=== PATIENT | male | born 1955 | race Two or more races ===

== ENCOUNTER → 2019-05-08 | Outpatient (CLI) | payer OTHER ==
[~2019-05-08] MED LIST: PERCOCET 5/3251 TAB PO; POLY119PG PO; ULTRAM50 MG PO
== END | disposition home or self-care (01) ==
LOC: RAD 11:33
DX: M25.561 Pain in right knee (principal)
CPT/HCPCS: 73718

== ENCOUNTER → 2019-10-09 12:05 | Outpatient (CLI) | payer OTHER | END | disposition home or self-care (01) | LOC: LAB 12:05 | DX: R97.20 Elevated prostate specific antigen [PSA] (principal) ==

== ENCOUNTER 2019-10-24 07:05 | Outpatient (CLI) | payer OTHER | END 2019-10-24 07:31 | disposition home or self-care (01) | LOC: SONOGRAMA 07:05 | DX: R97.20 Elevated prostate specific antigen [PSA] (principal) ==

== ENCOUNTER 2020-03-23 15:02 | Outpatient (CLI) | payer OTHER | END 2020-03-23 15:13 | disposition home or self-care (01) | LOC: RAD 15:02 | PROVIDERS: ATTEND Orthopaedic Surgery | DX: R07.89 Other chest pain (principal) ==

== ENCOUNTER 2020-05-29 09:21 | Emergency (ER) | payer OTHER ==
[~2020-05-29] VITALS: Ht 182.9 cm; Wt 100.2 kg
== END 2020-05-29 14:31 | disposition home or self-care (01) ==
LOC: ER 09:21
DX: K52.89 Other specified noninfective gastroenteritis and colitis (principal); Z03.818 Encounter for observation for suspected exposure to other biological agents ruled out

== ENCOUNTER 2021-02-01 07:54 | Outpatient (CLI) | payer OTHER | END 2021-02-01 07:56 | disposition home or self-care (01) | LOC: NUCLEAR 07:54 | PROVIDERS: ATTEND Urology | DX: C61 Malignant neoplasm of prostate (principal) | CPT/HCPCS: 78803; A9503 ==

== ENCOUNTER 2021-11-16 08:40 | Outpatient (CLI) | payer OTHER | END 2021-11-16 08:50 | disposition home or self-care (01) | LOC: PPH VACUNA 08:40 | PROVIDERS: ATTEND Emergency Medicine Pediatric Emergency Medicine | DX: Z23 Encounter for immunization (principal) ==

== ENCOUNTER 2021-12-14 14:25 | Outpatient (CLI) | payer OTHER | END 2021-12-14 14:33 | disposition home or self-care (01) | LOC: RAD 14:25 | PROVIDERS: ATTEND Physical Medicine & Rehabilitation | DX: M17.0 Bilateral primary osteoarthritis of knee (principal) ==

== ENCOUNTER → 2022-04-03 | Outpatient (CLI) | payer OTHER | END | disposition home or self-care (01) | LOC: MRI 15:21 | PROVIDERS: ATTEND Physical Medicine & Rehabilitation | DX: M85.562 Aneurysmal bone cyst, left lower leg (principal) | CPT/HCPCS: 73718 ==

== ENCOUNTER → 2022-07-20 08:06 | Outpatient (CLI) | payer OTHER | END | disposition home or self-care (01) | LOC: LAB 08:06 | PROVIDERS: ATTEND Dermatology | DX: L40.0 Psoriasis vulgaris (principal) ==

== ENCOUNTER → 2022-07-25 10:09 | Outpatient (CLI) | payer OTHER | END | disposition home or self-care (01) | LOC: LAB 10:09 | PROVIDERS: ATTEND Dermatology | DX: L40.0 Psoriasis vulgaris (principal); Z79.899 Other long term (current) drug therapy ==

== ENCOUNTER 2022-08-15 13:57 | Outpatient (CLI) | payer OTHER | END 2022-08-15 14:05 | disposition home or self-care (01) | LOC: RAD 13:57 | DX: Z11.1 Encounter for screening for respiratory tuberculosis (principal) ==

== ENCOUNTER → 2022-12-26 | Outpatient (CLI) | payer OTHER | END | disposition home or self-care (01) | LOC: SONOGRAMA 11:13 | PROVIDERS: ATTEND Physical Medicine & Rehabilitation | DX: M25.562 Pain in left knee (principal) ==

== ENCOUNTER 2023-02-07 13:04 | Outpatient (CLI) | payer OTHER | END 2023-02-07 13:11 | disposition home or self-care (01) | LOC: RAD 13:04 | PROVIDERS: ATTEND Orthopaedic Surgery Adult Reconstructive Orthopaedic Surgery | DX: I11.9 Hypertensive heart disease without heart failure (principal); M17.0 Bilateral primary osteoarthritis of knee ==

== ENCOUNTER 2023-05-29 13:40 | Outpatient (CLI) | payer OTHER | END 2023-05-29 13:45 | disposition home or self-care (01) | LOC: RAD 13:40 | PROVIDERS: ATTEND Orthopaedic Surgery Adult Reconstructive Orthopaedic Surgery | DX: Z96.652 Presence of left artificial knee joint (principal) ==

== ENCOUNTER 2023-08-07 13:14 | Outpatient (CLI) | payer OTHER | END 2023-08-07 13:28 | disposition home or self-care (01) | LOC: RAD 13:14 | DX: M79.672 Pain in left foot (principal) ==

== ENCOUNTER 2024-09-01 14:23 | Outpatient (CLI) | payer OTHER | END 2024-09-01 14:29 | disposition home or self-care (01) | LOC: RAD 14:23 | PROVIDERS: ATTEND Internal Medicine | DX: Z11.1 Encounter for screening for respiratory tuberculosis (principal) ==

== ENCOUNTER → 2024-10-31 12:05 | Outpatient (CLI) | payer OTHER | END | disposition home or self-care (01) | LOC: RAD 12:05 | PROVIDERS: ATTEND Internal Medicine | DX: N41.0 Acute prostatitis (principal); N41.9 Inflammatory disease of prostate, unspecified; R97.20 Elevated prostate specific antigen [PSA]; E11.65 Type 2 diabetes mellitus with hyperglycemia; E55.9 Vitamin D deficiency, unspecified ==

== ENCOUNTER 2024-11-28 12:16 | Outpatient (CLI) | payer OTHER | END 2024-11-28 12:24 | disposition home or self-care (01) | LOC: RAD 12:16 | DX: M25.561 Pain in right knee (principal); M25.562 Pain in left knee ==

== ENCOUNTER 2025-06-05 13:44 | Outpatient (CLI) | payer OTHER | END 2025-06-05 14:26 | disposition home or self-care (01) | LOC: RAD 13:44 | PROVIDERS: ATTEND Internal Medicine | DX: N41.0 Acute prostatitis (principal); N41.9 Inflammatory disease of prostate, unspecified; R97.20 Elevated prostate specific antigen [PSA]; E11.65 Type 2 diabetes mellitus with hyperglycemia; E55.9 Vitamin D deficiency, unspecified; E11.69 Type 2 diabetes mellitus with other specified complication; J01.90 Acute sinusitis, unspecified; M77.32 Calcaneal spur, left foot ==